=== PATIENT | female | born 1960 | race Hispanic/Latino ===

== ENCOUNTER 2020-08-24 08:27 | Outpatient (CLI) | payer MEDICARE ==
--- NOTE | 2020-08-24 10:50 | ULT ---
HEPATIC ULTRASOUND: HISTORY: Elevated liver function tests. COMPARISON: An 05/10/2020 CT study. FINDINGS: Real-time imaging of the right upper quadrant shows a normal-appearing gallbladder. The common duct is in the 5-6 mm range. The liver is of diffuse increased echogenicity. It measures 15.3 cm in size . The spleen measures 10.6 cm. Vascular flow patterns within the liver appear normal. IMPRESSION: Fatty change of the liver. The liver is not enlarged and measures 15.3 cm in length. POS: [facility]
== END 2020-08-24 08:28 | disposition home or self-care (01) ==
LOC: BICULT 08:27
PROVIDERS: ATTEND Internal Medicine Gastroenterology
DX: R74.8 Abnormal levels of other serum enzymes (principal); K76.0 Fatty (change of) liver, not elsewhere classified; D69.6 Thrombocytopenia, unspecified; K21.9 Gastro-esophageal reflux disease without esophagitis; R16.0 Hepatomegaly, not elsewhere classified
CPT/HCPCS: 76705

== ENCOUNTER 2022-12-20 10:28 | Outpatient (CLI) | payer OTHER ==
[2022-12-20 12:51] LABS: #Eosinphils 0.1 10x3/uL (0.0-0.5); #Monocytes 0.4 10x3/uL (0.0-1.1); #Neutrophils 3.5 10x3/uL (1.5-8.4); %Basophils 0.3 % (0.0-2.0); %Eosinophils 2.1 % (0.0-6.0); %Lymphocytes 33.3 % (18.0-47.0); %Monocytes 6.9 % (0.0-10.0); %Neutrophils 57.1 % (40.0-75.0); Hemoglobin 13.1 g/dL (12.0-15.5); Mean Corpuscular HGB CONC 34.6 g/dL (32.0-36.0); Mean Corpuscular Hemoglobin 28.9 pg (27.0-33.0); Mean Corpuscular Volume 83.7 fl (81.6-98.3); Mean Platelet Volume 10.5 fl (7.4-10.4); Platelet Count 151 10x3/uL (150-450); RBC Distribution Width 12.9 % (11.5-14.5); Red Blood Cell (RBC) Count 4.53 10x6/uL (3.90-5.03); White Blood Cell (WBC) Count 6.1 10x3/uL (3.5-10.5)
[2022-12-20 12:53] LABS: Prothrombin Time 10.5 sec (9.5-12.1)
[2022-12-20 12:59] LABS: Anion Gap 15 mmol/L (10-20); BUN (Urea Nitrogen) 15 mg/dL (9.8-20.1); Calc. Creatinine Clearance 0 mL/min (70-130); Calcium 9.1 mg/dL (7.8-10.44); Carbon Dioxide 22 mmol/L (23-31); Chloride 108 mmol/L (98-107); Estimated GFR 103; Glucose 122 mg/dL (80-115); Potassium 4.1 mmol/L (3.5-5.1); Sodium 141 mmol/L (136-145)
== END 2022-12-20 10:29 | disposition home or self-care (01) ==
LOC: LABBT 10:28
PROVIDERS: ATTEND Orthopaedic Surgery
DX: Z01.818 Encounter for other preprocedural examination (principal); M17.11 Unilateral primary osteoarthritis, right knee
CPT/HCPCS: 80048; 85025; 85610; 87081; 93005; 93010

== ENCOUNTER 2022-12-26 06:27 | Observation (INO) | payer OTHER ==
[2022-12-24 15:02] VITALS: BMI 32.8
[2022-12-26] MEDS ORDERED: Sodium Chloride 0.9% 100 ML ONE ×2 (07:26→09:10)
[2022-12-26] MEDS ORDERED: Tranexamic Acid 1,000 MG/10 ML VIAL ONE (07:26)
[2022-12-26] MEDS ORDERED: Vancomycin 1.5 GRAM/300 ML BAG 1.5 GM in Premix Bag 1 BAG IVPB SCH (07:45)
[2022-12-26] MEDS ORDERED: fentaNYL 50 mcg/mL 1 mL Vial ONE ×3 (08:31→12:55)
[2022-12-26] MEDS ORDERED: Midazolam HCl 2 mg/2 ml Vial ONE (08:31)
[2022-12-26] MEDS ORDERED: Bupivacaine PF 0.5% 30 ML VIAL ONE ×2 (08:31→08:58)
[2022-12-26] MEDS ORDERED: CEFAZOLIN 2 GM VIAL ONE (09:10)
[2022-12-26] MEDS ORDERED: fentaNYL 50 mcg/mL 1 mL Vial SLOW IVP PRN (09:12)
[2022-12-26] MEDS ORDERED: Promethazine HCl 25 MG/ML VIAL IM PRN ×3 (09:15→12:28)
[2022-12-26] MEDS ORDERED: Ondansetron PF 4 MG/2 ML Vial IVP PRN (09:15)
[2022-12-26] MEDS ORDERED: Zolpidem Tartrate 5 MG TAB PO PRN (09:15)
[2022-12-26] MEDS ORDERED: traMADol HCl 50 MG TAB PO PRN ×2 (09:15)
[2022-12-26] MEDS ORDERED: HYDROcodone/Acetaminophen 10/325 mg Tablet PO PRN ×2 (09:15)
[2022-12-26] MEDS ORDERED: Ropivacaine 0.2% 550 ML 550 ML NERVE BLCK SCH (09:15)
[2022-12-26] MEDS ORDERED: Dexamethasone 20 MG/5 ML VIAL ONE (09:47)
[2022-12-26] MEDS ORDERED: Lidocaine 1% PF 5 ML VIAL ONE (09:47)
[2022-12-26] MEDS ORDERED: PROPOFOL 200 MG/20 ML VIAL ONE (09:47)
[2022-12-26] MEDS ORDERED: Ondansetron PF 4 MG/2 ML Vial ONE (09:47)
[2022-12-26] MEDS ORDERED: ePHEDrine Sulfate 50 MG/10 ML VIAL ONE (09:47)
[2022-12-26] MEDS ORDERED: Bupivacaine HCl 0.5%/Epinephrine 1:200,000/PF 30 ml Vial ONE (09:47)
[2022-12-26] MEDS ORDERED: fentaNYL PF 100 MCG/2 ML SYRINGE ONE (10:17)
[2022-12-26] MEDS ORDERED: HYDROmorphone 2 MG/ML VIAL ONE (10:37)
[2022-12-26] MEDS ORDERED: HYDROmorphone 2 MG/ML VIAL SLOW IVP PRN (11:44)
[2022-12-26] MEDS ORDERED: Meperidine HCl/PF 25 MG/ML VIAL SLOW IVP PRN ×2 (11:44)
[2022-12-26] MEDS ORDERED: Ondansetron HCl/PF 4 MG/2 ML Vial IVP PRN (11:44)
[2022-12-26] MEDS ORDERED: diphenhydrAMINE 25 MG CAP PO PRN (12:28)
[2022-12-26] MEDS: Sodium Chloride 0.9% 1,000 ML IV SCH (14:30)
[2022-12-26] MEDS: Ketorolac Tromethamine 30 MG/ML VIAL IVP SCH ×2 (14:30→17:09)
[2022-12-26] MEDS: Ondansetron PF 4 MG/2 ML Vial IVP PRN ×2 (14:48→20:50)
[2022-12-26] MEDS: CEFAZOLIN 2 GM in Sodium Chloride 0.9% 100 ML IVPB SCH (17:04)
[2022-12-26] MEDS: Acetaminophen 325 MG TAB PO PRN (20:50)
[2022-12-26] MEDS: Aspirin 81 mg Enteric Coated Tablet PO SCH (20:50)
[2022-12-27] MEDS: Ketorolac Tromethamine 30 MG/ML VIAL IVP SCH ×2 (00:28→05:20)
[2022-12-27] MEDS: CEFAZOLIN 2 GM in Sodium Chloride 0.9% 100 ML IVPB SCH (00:28)
[2022-12-27] MEDS: Sodium Chloride 0.9% 1,000 ML IV SCH ×2 (01:16→08:42)
[2022-12-27] MEDS: Ondansetron PF 4 MG/2 ML Vial IVP PRN (03:13)
[2022-12-27] MEDS: Acetaminophen 325 MG TAB PO PRN (03:39)
[2022-12-27] MEDS ORDERED: Levothyroxine Sodium 25 MCG TAB PO SCH (06:00)
[2022-12-27 06:40] LABS: Hemoglobin 10.1 g/dL (12.0-16.0); Mean Corpuscular HGB CONC 34.9 g/dL (32.0-36.0); Mean Corpuscular Hemoglobin 30.3 pg (27.0-31.0); Mean Corpuscular Volume 86.7 fl (78.0-98.0); Mean Platelet Volume 8.1 fL (7.4-10.4); Platelet Count 127 10x3/uL (130-400); RBC Distribution Width 11.7 % (11.5-14.5); Red Blood Cell (RBC) Count 3.32 mill/uL (4.20-5.40); White Blood Cell (WBC) Count 11.6 10x3/uL (4.8-10.8)
[2022-12-27] MEDS ORDERED: Ferrous Gluconate 324 MG TAB PO SCH (08:00)
[2022-12-27] MEDS: Aspirin 81 mg Enteric Coated Tablet PO SCH (08:30)
[2022-12-27] MEDS ORDERED: carBAMazepine 200 MG TAB PO SCH (09:00)
[2022-12-27] MEDS ORDERED: CeleCOXIB 100 MG CAP PO SCH (09:00)
[2022-12-27] MEDS ORDERED: Senokot S 8.6-50 MG TAB PO SCH (09:00)
[2022-12-27] MEDS ORDERED: PARoxetine 20 MG TAB PO SCH (09:00)
[2022-12-27] MEDS ORDERED: Multivitamin W/ Minerals 1 TAB PO SCH (09:00)
[2022-12-27 12:31] VITALS: BP 136/79; TEMP 99.2
== END 2022-12-27 12:40 | disposition home or self-care (01) ==
LOC: SDC 06:27 → SJJU 12:28
PROVIDERS: ADMIT Orthopaedic Surgery; ATTEND Orthopaedic Surgery
PROC: 0SRC0J9 Replacement of Right Knee Joint with Synthetic Substitute, Cemented, Open Approach (ICD-10-PCS; principal; 2022-12-26)
DX: M17.0 Bilateral primary osteoarthritis of knee (principal); I10 Essential (primary) hypertension; E07.9 Disorder of thyroid, unspecified; Z79.890 Hormone replacement therapy; Z79.899 Other long term (current) drug therapy
CPT/HCPCS: 27447; 73560; 85027; 97110 ×2; 97116 ×2; 97530; A4306; J3010; J3370; 36415; 96374; 96375; 96376; C1713; C1776; G0378; J1100; J1170; J1885; J2250; J2405; J2704; J2795; J3490; S0020

== ENCOUNTER 2024-08-04 10:41 | Outpatient (CLI) | payer MEDICARE ==
[2024-08-04 12:03] LABS: #Basophils 0.03 10x3/uL (0.0-0.2); %Basophils 0.5 % (0.0-1.0); %Eosinophils 1.8 % (0.0-10.0); %Lymphocytes 32.3 % (21.0-51.0); %Monocytes 6.6 % (0.0-10.0); %Neutrophils 58.5 % (42.0-75.0); Hemoglobin 13.8 g/dL (12.0-16.0); Mean Corpuscular HGB CONC 33.7 g/dL (32.0-36.0); Mean Corpuscular Hemoglobin 28.2 pg (27.0-31.0); Mean Corpuscular Volume 83.7 fL (78.0-98.0); Mean Platelet Volume 9.9 fL (7.4-10.4); Platelet Count 151 10x3/uL (130-400); RBC Distribution Width 12.8 % (11.5-14.5)
[2024-08-04 12:21] LABS: INR-International Normal Ratio 1.1; Prothrombin Time 14.3 sec (12.0-14.7)
[2024-08-04 13:06] LABS: Anion Gap 13 mmol/L (10-20); BUN (Urea Nitrogen) 13 mg/dL (9.8-20.1); Calc. Creatinine Clearance 0 mL/min (70-130); Carbon Dioxide 25 mmol/L (23-31); Chloride 105 mmol/L (98-107); Estimated GFR 101; Glucose 116 mg/dL (80-115); Sodium 139 mmol/L (136-145)
== END 2024-08-04 10:42 | disposition home or self-care (01) ==
LOC: LABBT 10:41
PROVIDERS: ATTEND Orthopaedic Surgery
DX: Z01.818 Encounter for other preprocedural examination (principal); M17.12 Unilateral primary osteoarthritis, left knee
CPT/HCPCS: 80048; 85025; 85610; 87081; 93005; 93010

== ENCOUNTER 2024-08-04 12:53 | Outpatient (CLI) | payer OTHER | END 2024-08-04 12:54 | disposition home or self-care (01) | LOC: CT 12:53 → MERGE 12:53 → CT 12:54 | PROVIDERS: ATTEND Orthopaedic Surgery | DX: M17.12 Unilateral primary osteoarthritis, left knee (principal) ==

== ENCOUNTER 2024-08-11 06:20 | Observation (INO) | payer MEDICARE ==
[2024-08-11] MEDS ORDERED: EPINEPHrine 1 MG/ML VIAL ONE ×2 (07:20→07:28)
[2024-08-11] MEDS ORDERED: Bupivacaine 0.25% HCL 30 ML VIAL ONE (07:20)
[2024-08-11] MEDS ORDERED: fentaNYL 50 mcg/mL 1 mL Vial ONE (07:28)
[2024-08-11] MEDS ORDERED: Midazolam HCl 2 mg/2 ml Vial ONE (07:28)
[2024-08-11] MEDS ORDERED: Lidocaine 1% (PF) 30 ML VIAL ONE (07:29)
[2024-08-11] MEDS ORDERED: Ropivacaine 0.5% HCl/PF (150 MG/30 ML VIAL) ONE (07:29)
[2024-08-11] MEDS ORDERED: fentaNYL PF 100 MCG/2 ML SYRINGE ONE ×2 (07:55→11:10)
[2024-08-11] MEDS ORDERED: CEFAZOLIN 2 GM VIAL ONE (07:56)
[2024-08-11] MEDS ORDERED: Vancomycin (BATCH) 1.5 GM/300 ML BAG ONE (07:56)
[2024-08-11] MEDS ORDERED: PROPOFOL 40 ML ONE (07:56)
[2024-08-11] MEDS ORDERED: Sodium Chloride 0.9% 100 ML ONE (07:56)
[2024-08-11] MEDS ORDERED: Tranexamic Acid 1,000 MG/10 ML VIAL ONE (07:56)
[2024-08-11] MEDS ORDERED: traMADol HCl 50 MG TAB PO PRN ×2 (08:15)
[2024-08-11] MEDS ORDERED: Ropivacaine 0.2% 550 ML 550 ML NERVE BLCK SCH (08:15)
[2024-08-11] MEDS ORDERED: Promethazine HCl 25 MG/ML VIAL IM PRN (08:15)
[2024-08-11] MEDS ORDERED: Ondansetron PF 4 MG/2 ML Vial IVP PRN (08:15)
[2024-08-11] MEDS ORDERED: Zolpidem Tartrate 5 MG TAB PO PRN (08:15)
[2024-08-11] MEDS ORDERED: fentaNYL 50 mcg/mL 1 mL Vial SLOW IVP PRN (08:15)
[2024-08-11] MEDS ORDERED: HYDROcodone/Acetaminophen 10/325 mg Tablet PO PRN ×2 (08:15)
[2024-08-11] MEDS ORDERED: Ondansetron PF 4 MG/2 ML Vial ONE (08:42)
[2024-08-11] MEDS ORDERED: Ketamine In 0.9 % NaCl 50 MG/5 ML SYRINGE ONE (08:42)
[2024-08-11] MEDS ORDERED: Dexamethasone 20 MG/5 ML VIAL ONE (08:42)
[2024-08-11] MEDS ORDERED: diphenhydrAMINE 25 MG CAP PO PRN (11:09)
[2024-08-11] MEDS ORDERED: HYDROmorphone 2 MG/ML VIAL ONE (11:27)
[2024-08-11] MEDS: Ketorolac Tromethamine 30 MG (1 mL) VIAL IVP SCH (13:20)
[2024-08-11 13:46] VITALS: TEMP 98.1
[2024-08-11 13:48] VITALS: BMI 36.4
[2024-08-11] MEDS: Sodium Chloride 0.9% 1,000 ML IV SCH (14:08)
[2024-08-11 15:21] VITALS: BP 124/71
[2024-08-11] MEDS: CEFAZOLIN 2 GM in Sodium Chloride 0.9% 100 ML IVPB SCH (16:14)
[2024-08-11] MEDS ORDERED: Metoprolol Tartrate 100 MG TAB PO SCH (21:00)
[2024-08-11] MEDS ORDERED: Latanoprost 0.005% Ophth Soln 2.5 ml Bottle EA EYE SCH (21:00)
[2024-08-11] MEDS: Aspirin 81 mg Enteric Coated Tablet PO SCH (21:09)
[2024-08-11] MEDS: Ferrous Gluconate 324 MG TAB PO SCH (21:09)
[2024-08-11] MEDS: Acetaminophen 325 MG TAB PO PRN (21:18)
[2024-08-11] MEDS: Senokot S 8.6-50 MG TAB PO SCH (21:22)
[2024-08-12] MEDS ORDERED: Levothyroxine Sodium 25 MCG TAB PO SCH (06:00)
[2024-08-12] MEDS ORDERED: Non-Formulary Item 1 EACH (Omeprazole [Omeprazole] 20 MG Tablet.Dr) PO SCH (09:00)
[2024-08-12] MEDS ORDERED: Non-Formulary Item 1 EACH (Levothyroxine Sodium [Levothyroxine Sodium] 25 MCG Capsule) PO SCH (09:00)
[2024-08-12] MEDS ORDERED: PARoxetine 20 MG TAB PO SCH ×2 (09:00)
[2024-08-12] MEDS ORDERED: FLU (Fluarix Triv) TS24-25(6MOS UP)/PF 45 MCG/0.5 ML Syringe IM ONE (09:00)
[2024-08-12] MEDS ORDERED: Multivitamin W/ Minerals 1 TAB PO SCH (09:00)
[2024-08-12] MEDS ORDERED: carBAMazepine XR 200 mg ER.Tablet PO SCH (09:00)
[2024-08-12] MEDS ORDERED: Pantoprazole DR 40 MG TAB PO SCH (09:00)
[2024-08-12] MEDS ORDERED: Atorvastatin Calcium 10 MG TAB PO SCH (09:00)
== END 2024-08-12 23:59 | disposition home or self-care (01) ==
LOC: SDC 06:20 → SURG A 13:30 → SDC 23:59
PROVIDERS: ADMIT Orthopaedic Surgery; ATTEND Orthopaedic Surgery
PROC: 0SRD0JZ Replacement of Left Knee Joint with Synthetic Substitute, Open Approach (ICD-10-PCS; principal; 2024-08-11)
PROC: 3E0T3BZ Introduction of Anesthetic Agent into Peripheral Nerves and Plexi, Percutaneous Approach (ICD-10-PCS; 2024-08-11)
DX: M17.12 Unilateral primary osteoarthritis, left knee (principal); I10 Essential (primary) hypertension; E78.5 Hyperlipidemia, unspecified; E03.9 Hypothyroidism, unspecified; F41.9 Anxiety disorder, unspecified; F32.A Depression, unspecified; K21.9 Gastro-esophageal reflux disease without esophagitis; H40.9 Unspecified glaucoma; Z96.651 Presence of right artificial knee joint; Z87.59 Personal history of other complications of pregnancy, childbirth and the puerperium; Z90.710 Acquired absence of both cervix and uterus; Z90.49 Acquired absence of other specified parts of digestive tract; Z79.82 Long term (current) use of aspirin; Z79.899 Other long term (current) drug therapy
CPT/HCPCS: 0055T; 27447; 64448; A4306; C1713; C1776; C1889; J0171; J0665; J1100; J1885; J2250; J2405; J2704; J2795; J3010; J3370; J3490